=== PATIENT | male | born 1965 | race Caucasian/White ===

== ENCOUNTER 2018-08-17 19:01 | Emergency (ER) | payer OTHER ==
--- NOTE | 2018-08-17 19:28 | ED ---
HPI Chest Pain - HPI Summary HPI Summary: 52 year [facility] [place] female friend complains of left sided chest pain since mid afternoon today while sitting in his chair, gradually worsening over the last hour. The patient rates the pain 5/10 in severity. Symptoms aggravated by deep breathing and movement. Symptoms alleviated by nothing. Patient reports shortness of breath. Patient additionally complains of left shoulder tingliness while driving at 16:30 today. He denies nausea and vomiting. Patient denies cardiac hx. - History of Current Complaint Chief Complaint: EDChestPainROMI Time Seen by Provider: 08/17/18 19:16 Hx Obtained From: Patient Onset/Duration: Started Hours Ago - mid afternoon today, Still Present, Worse Since - 1 hour Timing: Constant Current Severity: Moderate Pain Intensity: 5 Pain Scale Used: 0-10 Numeric Chest Pain Location: Discrete at: - left sided Aggravating Factor(s): Movement, Deep Breaths Alleviating Factor(s): Nothing Associated Signs and Symptoms: Positive: Negative - nausea, vomiting, Other: - shortness of breath, left shoulder tingliness - Allergy/Home Medications Allergies/Adverse Reactions: Allergies Allergy/AdvReac Type Severity Reaction Status Date / Time No Known Allergies Allergy Verified 08/17/18 19:20 Home Medications: Home Medications NK [No Home Medications Reported] 08/17/18 [History Confirmed 08/17/18] PMH/Surg Hx/FS Hx/Imm Hx Previously Healthy: No Endocrine/Hematology History: Denies: Hx Diabetes Cardiovascular History: Denies: Hx Hypertension - Surgical History Surgery Procedure, Year, and Place: Tonsillectomy. [place] teeth Infectious Disease History: No Infectious Disease History: Denies: Traveled Outside the [place] in Last 30 Days - Family History Known Family History: Positive: Diabetes - Father, Other - Leukemia--father - Social History Hx Substance Use: No Substance Use Type: Reports: None Hx Tobacco Use: Yes Smoking Status (MU): Former Smoker Review of Systems Positive: Chest Pain Positive: Shortness Of Breath Negative: Vomiting, Nausea Neurological: Other - left shoulder tingliness All Other Systems Reviewed And Are Negative: Yes Physical Exam - Summary Physical Exam Summary: Appearance: The patient is well-nourished in no acute distress and in no acute pain. Skin: The skin is warm and dry and skin color reflects adequate perfusion. HEENT: The head is normocephalic and atraumatic. The pupils are equal and reactive. The conjunctivae are clear and without drainage. Nares are patent and without drainage. Mouth reveals moist mucous membranes and the throat is without erythema and exudate. The external ears are intact. The ear canals are patent and without drainage. The tympanic membranes are intact. Patient has a little poor dentition. Neck: The neck is supple with full range of motion and non-tender. There are no carotid bruits. There is no neck vein distension. Respiratory: Chest is non-tender. Lungs are clear to auscultation and breath sounds are symmetrical and equal. Cardiovascular: Heart is regular rate and rhythm. There is no murmur or rub auscultated. There is no peripheral edema and pulses are symmetrical and equal. Abdomen: The abdomen is soft and non-tender. There are normal bowel sounds heard in all four quadrants and there is no organomegaly palpated. Musculoskeletal: There is no back tenderness noted. Extremities are non-tender with full range of motion. There is good capillary refill. There is no peripheral edema or calf tenderness elicited. Neurological: Patient is alert and oriented to person, place and time. The patient has symmetrical motor strength in all four extremities. Cranial nerves are grossly intact. Deep tendon reflexes are symmetrical and equal in all four extremities. Psychiatric: The patient has an appropriate affect and does not exhibit any anxiety or depression. Triage Information Reviewed: Yes Vital Signs On Initial Exam: Initial Vitals Temp Pulse Resp BP Pulse Ox 98.1 F 70 18 145/83 97 08/17/18 19:06 08/17/18 19:06 08/17/18 19:06 08/17/18 19:06 08/17/18 19:06 Vital Signs Reviewed: Yes Diagnostics - Vital Signs Vital Signs Temp Pulse Resp BP Pulse Ox 08/17/18 19:06 98.1 F 70 18 145/83 97 - Laboratory Result Diagrams: 08/17/18 20:03 08/17/18 20:03 Lab Statement: Any lab studies that have been ordered have been reviewed, and results considered in the medical decision making process. - EKG 1906 Cardiac Rate: NL - 73 BPM EKG Rhythm: Sinus Rhythm EKG Comparison: Other - No prior to compare Summary of EKG Findings: NSR at 73 BPM Chest Pain Course/Dx - Course Course Of Treatment: Mr. Chaidez presented with a few hours of a left-sided chest pain that was sharp, pleuritic and exacerbated with movement. There were no associated symptoms. He was kept on a monitor while labs, ecg and CXR were obtained including a delayed troponin and a d-dimer. He will be discharged when his second troponin returns negative. - Diagnoses Provider Diagnoses: Chest pain Discharge - Sign-Out/Discharge Documenting (check all that apply): Patient Departure Patient Received Moderate/Deep Sedation with Procedure: No - Discharge Plan Condition: Stable Disposition: HOME Referrals: Lois Worthington NP [Primary Care Provider] - - Billing Disposition and Condition Condition: STABLE Disposition: Home - Attestation Statements Document Initiated by Dimasibe: Yes Documenting Scribe: Yessi Cisneros Provider For Whom Jas is Documenting (Include Credential): Carter Garcia MD Scribe Attestation: Yessi Puente, scribed for Carter Garcia MD on 08/17/18 at 2110. Scribe Documentation Reviewed: Yes Provider Attestation: The documentation as recorded by the Yessi pineda accurately reflects the service I personally performed and the decisions made by me, Carter Garcia MD Status of Scribfrancisco j Document: Viewed
[2018-08-17 20:21] LABS: ABS Basophils 0.1 10^3/ul (0-0.2); ABS Eosinophils 0.3 10^3/ul (0-0.6); ABS Lymphocytes 1.6 10^3/ul (1.0-4.8); ABS Monocytes 0.8 10^3/ul (0-0.8); ABS Neutrophils 6.8 10^3/ul (1.5-7.7); ABS Nucleated RBC 0 10^3/ul; Eosinophil % 3.6 %; Hematocrit 45 % (36-46); Hemoglobin 14.7 g/dL (14.0-18.0); Lymphocyte % 16.9 %; Mean Corpuscular HGB Conc 33 g/dL (31-36); Mean Corpuscular Hemoglobin 30 pg (27-31); Mean Corpuscular Volume 91 fL (80-94); Mean Platelet Volume 8.3 fL (7.4-10.4); Nucleated Red Blood Cells % 0.1; Platelet Count 238 10^3/uL (150-450); Red Blood Count 4.91 10^6 /uL (4.18-5.48); Red Cell Distribution Width 14 % (10.5-15); White Blood Count 9.6 10^3/uL (3.5-10.8)
[2018-08-17 20:38] LABS: Albumin/Globulin Ratio 1.5 (1-3); BUN/Creatinine Ratio 18.8 (8-20); Calcium 8.9 mg/dL (8.6-10.3); EGFR Non-African American 68.6 (>60); Globulin 2.7 g/dL (2-4); Potassium 4.3 mmol/L (3.5-5.0); Total Bilirubin 0.3 mg/dL (0.2-1.0); Total Protein 6.7 g/dL (6.4-8.9)
[2018-08-17] MEDS ORDERED: Ibuprofen TAB* 600 MG PO ONE (21:11)
[2018-08-17] MEDS ORDERED: traMADol TAB* 50 MG PO ONE (22:11)
[2018-08-17 22:57] VITALS: BP 133/78
== END 2018-08-17 23:22 | disposition home or self-care (01) ==
LOC: ED 19:01
DX: R07.9 Chest pain, unspecified (principal); Z87.891 Personal history of nicotine dependence
CPT/HCPCS: 36415; 71045; 80053; 83605; 84484; 85025; 85379; 93005; 99283; A9270-GY